=== PATIENT | female | born 1955 | race Caucasian/White ===

== ENCOUNTER 2016-10-08 15:14 | Emergency (ER) | payer BC ==
[~2016-10-08] VITALS: Ht 172.7 cm; Wt 147.5 kg
[~2016-10-08 15:14] MED LIST: ASPI325T45 PO; METO25TA56 PO; MULT-513 PO
[2016-10-08 15:17] VITALS: TEMP 36.9; Ht 172.7 cm; Wt 147.5 kg
[2016-10-08] MEDS ORDERED: SODIUM CHLORIDE 0.9% 1000ML 1,000 ML IV STA (15:34)
[2016-10-08] MEDS ORDERED: ONDANSETRON INJ 2 MG/ML 2 ML VIAL IV STA (15:34)
[2016-10-08] MEDS ORDERED: SODIUM CHLORIDE 0.9% 1000ML 500 ML IV STA (15:34)
--- NOTE | 2016-10-08 15:44 | EMERGENCY ROOM VISIT NOTE ---
History Report prepared by Blessing: Grady Rudolph Under the Supervision of: Dr. Cl Zapien M.D. First contact with patient: 15:29 Chief Complaint: DIZZY Stated Complaint: LIGHT HEADED, DIZZY, HARD TO BREATH, UPSET STOMACH History of Present Illness The patient is a 60 year old female who presents to the Emergency Room with complaints of constant lightheadedness beginning two hours prior to arrival. She associates nausea, resolved shortness of breath, and general abdominal discomfort with today's symptoms. The patient states she was at work today, when she began to experience her lightheadedness. She called Dr. Hernandez's office (Cardiology), and a nurse referred the patient to the ED. She notes of a history of atrial fibrillation with an ablation in December 2015. The patient states she has been doing well since the procedure, but she complains of intermittent heart fluttering beginning a few days ago. She associates right calf swelling with today's symptoms, as well. The patient notes she was lying in bed the other night, when she began to feel her heart race. She states she got out of bed which helped resolve her heart racing. The patient denies a history of blood clots in her legs or lungs but notes her father had clotting issues. She notes she takes a full aspirin daily. Source of History: patient Onset: two hours SLEEVER Position: other (global) Quality: other (lightheadedness) Timing: constant Associated Symptoms: + SOB (resolved), + abdominal pain (general abdominal discomfort), + nausea Note: Associated symptoms: intermittent heart fluttering, right calf swelling. Review of Systems See HPI for pertinent positives & negatives. A total of 10 systems reviewed and were otherwise negative. Past Medical & Surgical Medical Problems: (1) Atrial fibrillation (2) Labial abscess Surgical Problems: (1) Hx of cholecystectomy Family History Diabetes mellitus Social History Smoking Status: Never Smoker Alcohol Use: none Marital Status: Housing Status: lives with significant other Occupation Status: employed Current/Historical Medications Scheduled Aspirin (Aspirin), 325 MG PO DAILY Metoprolol Tartrate (Lopressor) (Lopressor), 25 MG PO DAILY Multivitamins/Minerals (Mvi With Minerals), 1 TAB PO QAM Allergies Coded Allergies: No Known Allergies (Unverified , 07/01/16) Physical Exam Vital Signs Date Time Temp Pulse Resp B/P Pulse Ox O2 Delivery O2 Flow Rate FiO2 1/25/17 18:50 63 15 131/74 100 10/08/16 17:48 65 10/08/16 17:21 62 16 125/80 97 Room Air 10/08/16 15:47 97 Room Air 10/08/16 15:17 36.9 67 18 152/99 97 Room Air Physical Exam GENERAL: Patient is in no acute distress. HEENT: No acute trauma, normocephalic atraumatic, mucous membranes moist, no nasal congestion, no scleral icterus. NECK: No stridor, no adenopathy, no meningismus, trachea is midline. LUNGS: Clear to auscultation bilaterally, no wheeze, no rhonchi, breath sounds equal. HEART: Without murmurs gallops or rubs, regular rate and rhythm. ABDOMEN: Soft, nontender, bowel sounds positive, no hernias, no peritonitis. EXTREMITIES: Mild bilateral pedal edema, no cellulitis. No cyanosis, full range of motion of all the joints without pain or difficulty, no signs for acute trauma. NEUROLOGIC: Oriented x 3, no acute motor or sensory deficits, no focal weakness. SKIN: No rash, no jaundice, no diaphoresis. Medical Decision & Procedures ER Provider Diagnostic Interpretation: US results as stated below per my review and radiologist interpretation: CT results as stated below per my review and radiologist interpretation: BILATERAL LOWER EXTREMITY VENOUS DOPPLER CLINICAL HISTORY: Lower extremity swelling. COMPARISON STUDY: No previous studies for comparison. TECHNIQUE: Sonography of the deep venous system of the bilateral lower extremities was performed. Compression and augmentation were evaluated. FINDINGS: The bilateral common femoral, superficial femoral and popliteal veins were compressible. Augmentation was normal. Flow was shown within the deep calf vessels although the calf vessels were difficult to assess due to suboptimal penetration. Note was made of superficial thrombus within a superficial vein of the medial right thigh. IMPRESSION: 1. Thrombus within a superficial vein of the medial right thigh consistent with superficial thrombophlebitis. 2. No deep venous thrombus identified within either lower extremity. Electronically signed by: Madhav Leiva M.D. 10/08/2016 4:[address] ANGIOGRAM OF THE CHEST CLINICAL HISTORY: Atypical chest pain. COMPARISON STUDY: Chest radiograph dated 01/11/2015. TECHNIQUE: Following the IV administration of 92 cc of Optiray 320, CT angiogram of the chest was performed from the upper abdomen to the thoracic inlet utilizing the pulmonary embolus protocol. Images are reviewed in the axial, sagittal, and coronal planes. 3-D MIPS images are created and assessed. IV contrast was administered without complication. The examination is degraded by large body habitus, and by streak artifact from the body wall abutting the CT gantry. There is also motion artifact and streak artifact from the patient's necklace. CT DOSE: 517.24 mGycm FINDINGS: Thyroid: Imaged portions of the thyroid gland are normal in size and attenuation. Thoracic aorta: There is mild atherosclerotic calcification of the thoracic aorta, which is normal in caliber and demonstrates standard 3-vessel arch anatomy. No dissection is seen. Pulmonary vasculature: The pulmonary trunk is normal in caliber. There are no filling defects identified in main, lobar, or segmental pulmonary branches to suggest pulmonary embolus. Heart: The heart is mildly enlarged and without pericardial effusion. Lungs and pleural spaces: Evaluation of the lung parenchyma is degraded by respiratory motion artifact. No airspace consolidation or pleural effusion is seen. Dependent atelectasis is observed. The trachea and central airways Are clear. Mediastinum: There is no mediastinal lymphadenopathy. Aydee: Clear. Axillae: There is no axillary lymphadenopathy. Upper abdomen: The liver is enlarged and steatotic. A small hiatal hernia is noted. Partially visualized upper abdominal viscera is otherwise within normal limits. Skeletal structures: Degenerative change is noted throughout the thoracic spine. No lytic or blastic bony lesions are seen. IMPRESSION: 1. There is no evidence of pulmonary embolus in the main, lobar, or segmental pulmonary arteries. 2. The lungs are clear. 3. Hepatic steatosis. 4. Mild cardiac enlargement. Electronically signed by: Cl Luis M.D. 10/08/2016 6:02 PM Laboratory Results 10/08/16 15:48 Red Blood Count 4.77, Mean Corpuscular Volume 83.9, Mean Corpuscular Hemoglobin 28.9, Mean Corpuscular Hemoglobin Concent 34.5 10/08/16 15:48 Test 10/08/16 15:48 10/08/16 16:00 White Blood Count 7.25 K/uL (4.8-10.8) Red Blood Count 4.77 M/uL (4.2-5.4) Hemoglobin 13.8 g/dL (12.0-16.0) Hematocrit 40.0 % (37-47) Mean Corpuscular Volume 83.9 fL (80-100) Mean Corpuscular Hemoglobin 28.9 pg (25-34) Mean Corpuscular Hemoglobin Concent 34.5 g/dl (32-36) Platelet Count 182 K/uL (130-400) Neutrophils % (Manual) 56.5 % Lymphocytes % (Manual) 15.7 % Variant Lymphocytes % (manual) 14.8 % Monocytes % (Manual) 8.3 % Eosinophils % (Manual) 2.8 % Metamyelocytes % 1.9 % Neutrophils # (Manual) 4.10 K/uL (1.4-6.5) Total Absolute Neutrophils 4.10 K/uL (1.4-6.5) Lymphocytes # (Manual) 1.14 K/uL (1.2-3.4) Absolute Variant Lymphocytes 1.07 K/uL Total Absolute Lymphocytes 2.21 K/uL (1.2-3.4) Monocytes # (Manual) 0.60 K/uL (0.11-0.59) Eosinophils # (Manual) 0.20 K/uL (0-0.5) Metamyelocytes # 0.14 K/uL (0-0) Toxic Vacuolation 1+ Platelet Estimate NORMAL Prothrombin Time 10.1 SECONDS (9.0-12.0) Prothromb Time International Ratio 0.9 (0.9-1.1) Activated Partial Thromboplast Time 21.4 SECONDS (21.0-31.0) Partial Thromboplastin Ratio 0.8 Anion Gap 9.0 mmol/L (3-11) Est Creatinine Clear Calc Drug Dose 113.5 ml/min Estimated GFR () 90.1 Estimated GFR (Non- 77.7 BUN/Creatinine Ratio 17.0 (10-20) Calcium Level 9.2 mg/dl (8.5-10.1) Total Bilirubin 0.3 mg/dl (0.2-1) Aspartate Amino Transf (AST/SGOT) 34 U/L (15-37) Alanine Aminotransferase (ALT/SGPT) 55 U/L (12-78) Alkaline Phosphatase 97 U/L (45-117) Troponin I < 0.015 ng/ml (0-0.045) Total Protein 7.3 gm/dl (6.4-8.2) Albumin 3.8 gm/dl (3.4-5.0) Globulin 3.5 gm/dl (2.5-4.0) Albumin/Globulin Ratio 1.1 (0.9-2) Thyroid Stimulating Hormone (TSH) 2.080 uIu/ml (0.300-4.500) Urine Color YELLOW Urine Appearance CLEAR (CLEAR) Urine pH 7.0 (4.5-7.5) Urine Specific [place] 1.001 (1.000-1.030) Urine Protein NEG (NEG) Urine Glucose (UA) NEG (NEG) Urine Ketones NEG (NEG) Urine Occult Blood NEG (NEG) Urine Nitrite NEG (NEG) Urine Bilirubin NEG (NEG) Urine Urobilinogen NEG (NEG) Urine Leukocyte Esterase MODERATE (NEG) Urine WBC (Auto) 5-10 /hpf (0-5) Urine RBC (Auto) 0-4 /hpf (0-4) Urine Hyaline Casts (Auto) 0 /lpf (0-5) Urine Epithelial Cells (Auto) >30 /lpf (0-5) Urine Bacteria (Auto) NEG (NEG) Laboratory results reviewed by me. Medications Administered Medications (Trade) Dose Ordered Sig/Ubaldo Route Start Time Stop Time Status Last Admin Dose Admin Sodium Chloride 500 ml @ 999 mls/hr Q31M STAT IV 10/08/16 15:34 10/08/16 16:04 DC 10/08/16 15:58 999 MLS/HR Sodium Chloride (Nss 1000ml) 1,000 ml @ 200 mls/hr Q5H STAT IV 10/08/16 15:34 10/08/16 19:26 DC 10/08/16 17:19 200 MLS/HR ECG Indication: other (lightheadedness) Rate (beats per minute): 68 Rhythm: normal sinus Findings: no acute ischemic change, no ectopy, other (Poor R wave progression) ED Course 1530: The patient was evaluated in room B2. A complete history and physical exam was performed. 1534: Ordered Sodium Chloride 1,000 ml @ 200 mls/hr IV, Zofran Inj 4 mg IV, Sodium Chloride 500 ml @ 999 mls/hr IV. 0: Reevaluated the patient. Discussed results and discharge instructions: She verbalized understanding and agreement. The patient is ready for discharge. Medical Decision The differential diagnoses include but are not limited to: viral illness, dehydration, electrolyte imbalance, anemia, UTI, DVT or PE, atrial fibrillation , atrial flutter, SVT. There is no leukocytosis or concerning anemia. No significant electrolyte abnormality, kidney failure or hepatitis. The patient appears to be in a euthyroid state. There is no coagulopathy. EKG shows a normal sinus rhythm, no acute ischemia. Cardiac enzyme testing times one is not consistent with acute cardiac injury. Urinalysis does not show evidence for infection. Bilateral lower extremity ultrasound shows a right thigh superficial thrombophlebitis, no acute DVT. Chest CT shows no evidence for PE or for aortic dissection. The patient presents with some heart fluttering and kind of an unwell feeling in general. Her workup is benign. I think she can be discharged with outpatient follow-up, she will talk with her local truck driver about a Holter monitor , she will return here for worsening symptoms, rest was encouraged. Impression Primary Impression: Palpitations Additional Impression: Weakness Scribe Attestation The scribe's documentation has been prepared under my direction and personally reviewed by me in its entirety. I confirm that the note above accurately reflects all work, treatment, procedures, and medical decision making performed by me. Departure Information Dispostion Home / Self-Care Referrals Alejandra Gomez DO (PCP) Forms HOME CARE DOCUMENTATION FORM, IMPORTANT VISIT INFORMATION, Work Instructions Patient Instructions My [facility] [employer] Additional Instructions rest stay well hydrated heat to right thigh--warm compresses see xiang valladares for a recheck set up an appt with cardiology lung and heart testing today was all ok return for worsening symptoms Problem Qualifiers
[2016-10-08 15:47] VITALS: O2SAT 97
[2016-10-08 16:26] LABS: INR 0.9 (0.9-1.1); PARTIAL THROMBOPLASTIN RATIO 0.8; PROTHROMBIN TIME (PATIENT) 10.1 SECONDS (9.0-12.0)
[2016-10-08 16:37] LABS: URINE APPEARANCE CLEAR (CLEAR); URINE BILIRUBIN NEG (NEG); URINE COLOR YELLOW; URINE EPITHELIAL CELL AUTO >30 /lpf (0-5); URINE NITRITE NEG (NEG); URINE SPECIFIC GRAVITY 1.001 (1.000-1.030); UROBILINOGEN NEG (NEG); ZZUR CULT IF INDIC CLEAN CATCH NO
[2016-10-08 16:38] LABS: ALT/SGPT 55 U/L (12-78); AST/SGOT 34 U/L (15-37); BLOOD UREA NITROGEN 14 mg/dl (7-18); CALCIUM 9.2 mg/dl (8.5-10.1); CARBON DIOXIDE 26 mmol/L (21-32); CHLORIDE 105 mmol/L (98-107); CREATININE 0.83 mg/dl (0.60-1.20); GLUCOSE 94 mg/dl (70-99); POTASSIUM 3.8 mmol/L (3.5-5.1); SODIUM 140 mmol/L (136-145)
[2016-10-08 16:43] LABS: MANUAL MICROSCOPIC REQUIRED? NO; REVIEW REQ? NO
[2016-10-08 16:49] LABS: ALB/GLOB RATIO 1.1 (0.9-2); ALKALINE PHOSPHATASE 97 U/L (45-117)
--- NOTE | 2016-10-08 17:00 | DIAGNOSTIC IMAGING REPORT ---
BILATERAL LOWER EXTREMITY VENOUS DOPPLER CLINICAL HISTORY: Lower extremity swelling. COMPARISON STUDY: No previous studies for comparison. TECHNIQUE: Sonography of the deep venous system of the bilateral lower extremities was performed. Compression and augmentation were evaluated. FINDINGS: The bilateral common femoral, superficial femoral and popliteal veins were compressible. Augmentation was normal. Flow was shown within the deep calf vessels although the calf vessels were difficult to assess due to suboptimal penetration. Note was made of superficial thrombus within a superficial vein of the medial right thigh. IMPRESSION: 1. Thrombus within a superficial vein of the medial right thigh consistent with superficial thrombophlebitis. 2. No deep venous thrombus identified within either lower extremity. Electronically signed by: Madhav Leiva M.D. 10/08/2016 4:58 PM Dictated Date/Time: 10/08/2016 4:56 PM
[2016-10-08] MEDS ORDERED: OPTIRAY 320 IV PRN (17:30)
[2016-10-08 17:40] LABS: MEAN CELL VOLUME 83.9 fL (80-100); MEAN CORPUSCULAR HEMOGLOBIN 28.9 pg (25-34); MEAN CORPUSCULAR HGB CONC 34.5 g/dl (32-36); PLATELET COUNT 182 K/uL (130-400); RED BLOOD COUNT 4.77 M/uL (4.2-5.4); WHITE BLOOD COUNT 7.25 K/uL (4.8-10.8)
[2016-10-08 17:41] LABS: COMPLETE YES; EOSINOPHIL % 2.8 %; LYMPH ABS # 1.14 K/uL (1.2-3.4); LYMPHOCYTE % 15.7 %; META ABS # 0.14 K/uL (0-0); METAMYELOCYTE % 1.9 %; NEUTROPHILS % 56.5 %; PLT ESTIMATE NORMAL; VACUOLIZATION 1+; VARIANT LYM ABS # 1.07 K/uL; VARIANT LYMPHOCYTE % 14.8 %
--- NOTE | 2016-10-08 18:04 | DIAGNOSTIC IMAGING REPORT ---
CT ANGIOGRAM OF THE CHEST CLINICAL HISTORY: Atypical chest pain. COMPARISON STUDY: Chest radiograph dated 01/11/2015. TECHNIQUE: Following the IV administration of 92 cc of Optiray 320, CT angiogram of the chest was performed from the upper abdomen to the thoracic inlet utilizing the pulmonary embolus protocol. Images are reviewed in the axial, sagittal, and coronal planes. 3-D MIPS images are created and assessed. IV contrast was administered without complication. The examination is degraded by large body habitus, and by streak artifact from the body wall abutting the CT gantry. There is also motion artifact and streak artifact from the patient's necklace. CT DOSE: 517.24 mGycm FINDINGS: Thyroid: Imaged portions of the thyroid gland are normal in size and attenuation. Thoracic aorta: There is mild atherosclerotic calcification of the thoracic aorta, which is normal in caliber and demonstrates standard 3-vessel arch anatomy. No dissection is seen. Pulmonary vasculature: The pulmonary trunk is normal in caliber. There are no filling defects identified in main, lobar, or segmental pulmonary branches to suggest pulmonary embolus. Heart: The heart is mildly enlarged and without pericardial effusion. Lungs and pleural spaces: Evaluation of the lung parenchyma is degraded by respiratory motion artifact. No airspace consolidation or pleural effusion is seen. Dependent atelectasis is observed. The trachea and central airways Are clear. Mediastinum: There is no mediastinal lymphadenopathy. Aydee: Clear. Axillae: There is no axillary lymphadenopathy. Upper abdomen: The liver is enlarged and steatotic. A small hiatal hernia is noted. Partially visualized upper abdominal viscera is otherwise within normal limits. Skeletal structures: Degenerative change is noted throughout the thoracic spine. No lytic or blastic bony lesions are seen. IMPRESSION: 1. There is no evidence of pulmonary embolus in the main, lobar, or segmental pulmonary arteries. 2. The lungs are clear. 3. Hepatic steatosis. 4. Mild cardiac enlargement. Electronically signed by: Cl Luis M.D. 10/08/2016 6:02 PM Dictated Date/Time: 10/08/2016 5:58 PM
[2016-10-08 18:50] VITALS: BP 131/74; PULSE 63; O2SAT 100
== END 2016-10-08 18:50 | disposition home or self-care (01) ==
LOC: C.EDB 15:15
DX: R00.2 Palpitations (principal); R53.1 Weakness; I48.91 Unspecified atrial fibrillation; Z79.82 Long term (current) use of aspirin; Z79.899 Other long term (current) drug therapy

== ENCOUNTER 2017-02-20 05:07 | Day surgery (SDC) | payer BC ==
[2017-01-26 15:08] VITALS: BMI 48.0
[2017-01-26 15:09] LABS: BASO % 0.7 %; BASO ABS # 0.04 K/uL (0-0.2); COMPLETE YES; EOS % 4.5 %; HEMATOCRIT 41.9 % (37-47); IG% 0.3 %; LYMPH % 28.7 %; LYMPH ABS # 1.73 K/uL (1.2-3.4); MEAN CELL VOLUME 85.2 fL (80-100); MEAN CORPUSCULAR HEMOGLOBIN 27.8 pg (25-34); MEAN CORPUSCULAR HGB CONC 32.7 g/dl (32-36); MEAN PLATELET VOLUME 9.7 fL (7.4-10.4); NEUT % 59.8 %; PLATELET COUNT 211 K/uL (130-400); RED BLOOD COUNT 4.92 M/uL (4.2-5.4); WHITE BLOOD COUNT 6.02 K/uL (4.8-10.8)
[2017-01-26 15:34] LABS: INR 0.9 (0.9-1.1); PROTHROMBIN TIME (PATIENT) 10.1 SECONDS (9.0-12.0)
--- NOTE | 2017-01-26 15:52 | PAT Medication Instructions ---
Service Date January 26, 2017. Current Home Medication List Aspirin (Aspirin), 325 MG PO QAM Metoprolol Tartrate (Lopressor) (Lopressor), 25 MG PO HS Multivitamins/Minerals (Mvi With Minerals), 1 TAB PO QAM Medication Instructions For Your Scheduled Surgery - Check with surgeon/polysomnography technician for instructions: Aspirin (Aspirin), 325 MG PO QAM - Hold the following medications the morning of surgery: Multivitamins/Minerals (Mvi With Minerals), 1 TAB PO QAM - Take the following medications as scheduled the night before surgery: Metoprolol Tartrate (Lopressor) (Lopressor), 25 MG PO HS If you have any questions please call us at [phone] (An Jama PA-C) or [phone] or [phone]
[~2017-02-20] VITALS: Ht 172.7 cm; Wt 143.4 kg
[2017-02-20 05:33] VITALS: BP 146/95; PULSE 56; TEMP 36.9; O2SAT 97; Ht 172.7 cm; Wt 143.4 kg
[2017-02-20] MEDS ORDERED: CEFAZOLIN 3000 MG/65 ML D5W IV SCH (06:00)
[2017-02-20] MEDS ORDERED: LACTATED RINGER'S 1000ML 1,000 ML IV SCH ×2 (06:00)
[2017-02-20] MEDS ORDERED: ALBUTEROL HFA 8 GM INHALER INH SCH (06:00)
[2017-02-20] MEDS ORDERED: FERRIC SUBSULFATE 8 GM VIAL ONE (06:35)
[2017-02-20] MEDS ORDERED: PROPOFOL IV EMULSION 10 MG/ML 20 ML VIAL IV ONE (06:41)
[2017-02-20] MEDS ORDERED: ROCURONIUM BROMIDE 10 MG/ML 5 ML VIAL ONE (06:41)
[2017-02-20] MEDS ORDERED: ONDANSETRON INJ 2 MG/ML 2 ML VIAL ONE (06:41)
[2017-02-20] MEDS ORDERED: NEOSTIGMINE METHYLSULFATE 5 MG/5 ML SYR ONE (06:41)
[2017-02-20] MEDS ORDERED: DEXAMETHASONE SOD INJ 4 MG/ML VIAL ONE (06:41)
[2017-02-20] MEDS ORDERED: GLYCOPYRROLATE INJ 0.2 MG/ML VIAL ONE ×3 (06:41→08:06)
[2017-02-20] MEDS ORDERED: FENTANYL CITRATE INJ 50 MCG/1 ML 2 ML VIAL ONE ×2 (06:41→08:03)
[2017-02-20] MEDS ORDERED: LIDOCAINE HCL 2% 2 ML VIAL (20MG/ML) ONE (06:41)
[2017-02-20] MEDS ORDERED: MIDAZOLAM HCL 1 MG/ML 2ML VIAL ONE (06:41)
--- NOTE | 2017-02-20 06:57 | History & Physical Bridge Note ---
H&P Re-Evaluation Bridge Note: I have examined the patient, reviewed the History & Physical and in the interval since the performance of the History & Physical I have noted the following changes of clinical significance: No changes noted
[2017-02-20] MEDS ORDERED: NURSING VERBAL MED ORDER ONE (07:00)
[2017-02-20] MEDS ORDERED: ATROPINE SULFATE 0.1 MG/ML 5ML SYR IV PRN (07:45)
[2017-02-20] MEDS ORDERED: KETOROLAC TROMETHAMINE 30 MG/ML VIAL IV. PRN ×2 (07:45→08:15)
[2017-02-20] MEDS ORDERED: LABETALOL HCL IV 5 MG/ML 20ML IV PRN (07:45)
[2017-02-20] MEDS ORDERED: ONDANSETRON INJ 2 MG/ML 2 ML VIAL IV PRN ×2 (07:45→08:15)
[2017-02-20] MEDS ORDERED: FENTANYL CITRATE INJ 50 MCG/1 ML 2 ML VIAL IV PRN (07:45)
[2017-02-20] MEDS ORDERED: KETOROLAC TROMETHAMINE 30 MG/ML VIAL ONE (08:03)
[2017-02-20] MEDS ORDERED: SODIUM CHLORIDE 0.9% 1000ML 1,000 ML IV SCH (08:10)
--- NOTE | 2017-02-20 08:10 | [facility] Post Operative Brief Note ---
Immediate Operative Summary Operative Date Feb 20, 2017. Pre-Operative Diagnosis Post menopausal bleeding; atypical glandular cells on pap smear Post-Operative Diagnosis Post menopausal bleeding; atypical glandular cells on pap smear Procedure(s) Performed Exam under anesthesia; Hysteroscopy, Dilation and Currettage; Polypectomy with Myosure Surgeon Dr. Key Bustos Customer Service Sales Associate Surgeon(s) none Estimated Blood Loss 5mL Findings 5x5mm endometrial polyp and atrophic endometrium Specimens A: Endometrial Polyp B: Endometrail Curetings Drains 200 ml urine Anesthesia GETA Complication(s) None Disposition Recovery Room / PACU
--- NOTE | 2017-02-20 08:14 | Discharge Instructions ---
Discharge Instructions Date of Service Feb 20, 2017. Admission Reason for Admission: Atypical Glandular Cells On Pap Smear, Pmb Discharge Discharge Diagnosis / Problem: Hysteroscopy, polypectomy and D7C Discharge Goals Goal(s): Routine recovery after surgery Activity Recommendations Activity Limitations: as noted below Lifting Limitations: gradually increase as tolerated Exercise/Sports Limitations: until after follow-up appointment May Resume Sexual Activity: after follow-up appointment Shower/Bathe: no limitations ACTIVITY RECOMMENDATIONS: * Avoid tampons, douching, hot tubs, pools, and intercourse until bleeding has stopped. * May shower as usual. * No strenuous activity for 24-48 hours. After 24-48 hours, you can do anything you feel like doing (driving and sports are okay). RETURN TO SCHOOL/WORK: * You may return to school or work after 48 hours unless specified by your physician. DIET: * Resume previous diet. MEDICATIONS: Resume previous medications unless instructed otherwise by your surgeon. Ibuprofen 200mg 34 tablets every 6-8 hours as needed --OR-- Aleve 2 tablets every 8-12 hours as needed for post-operative discomfort Medications are over the counter. Tylenol may be used if above medications are contraindicated or not preferred. Medication should be taken with food or milk. do not take on an empty stomach. SPECIAL CARE INSTRUCTIONS: * Check temperature twice daily for one week. Report any elevation over 101 degrees. * Call office if you experience increased pelvic pain or discomfort not relieved by pain medicine, if you have foul smelling vaginal discharge, if you have bleeding that is heavier than a normal menstrual flow. If you are changing a maxi pad every 1- 2 hours, this is too heavy. vaginal spotting is normal for 1-2 weeks. FOLLOW UP VISIT: Call your doctor's office for a post-operative visit. . Current Hospital Diet Patient's current hospital diet: Discharge Diet Recommended Diet: Regular Diet Procedures Procedures Performed: Exam under anesthesia; Hysteroscopy, Dilation and Currettage; Polypectomy with Myosure Pending Studies Studies pending at discharge: no Medical Emergencies . Who to Call and When: Medical Emergencies: If at any time you feel your situation is an emergency, please call 911 immediately. . Non-Emergent Contact Non-Emergency issues call your: Surgeon Call Non-Emergent contact if: temperature is above 100.5, your pain is not controlled, your pain is worsening, you have any medication questions . . "Provider Documentation" section prepared by Sheron Bustos. . VTE Core Measure Inpt VTE Proph given/why not?: Other Anticoagulation (On Aspirin)
[2017-02-20] MEDS ORDERED: PROMETHAZINE HCL INJ 25 MG in SODIUM CHLORIDE 0.9% 50ML 50 ML IV PRN (08:15)
[2017-02-20] MEDS ORDERED: MoRPHine SULFATE 2 MG/ML CARP IV PRN (08:15)
[2017-02-20] MEDS ORDERED: MoRPHine SULFATE 4 MG/ML 1 ML CARP\\VIAL IV PRN (08:15)
[2017-02-20] MEDS ORDERED: OXYCODONE/ACETAMINOPHEN 5-325 TAB PO PRN ×2 (08:15)
[2017-02-20] MEDS ORDERED: IBUPROFEN 600 MG TAB PO PRN (08:15)
[2017-02-20 08:35] VITALS: BP 115/65; PULSE 48; TEMP 36.2; O2SAT 95
--- NOTE | 2017-02-20 08:56 | OPERATIVE REPORT ---
DATE OF OPERATION: 02/20/2017 PREOPERATIVE DIAGNOSES: The patient is a 61-year-old G0 postmenopausal female with postmenopausal bleeding and atypical glandular cells on Pap smear, insufficient endometrial biopsy in the office and negative colposcopy. POSTOPERATIVE DIAGNOSES: Same and endometrial polyp. PROCEDURES: Examination under anesthesia, hysteroscopy, polypectomy with MyoSure and D&C. SURGEON: Dr. Bustos. PIT OPERATOR: None, OR nurses. ESTIMATED BLOOD LOSS: 5ml. FINDINGS: Examination under anesthesia revealed atrophic vagina, small nulliparous cervix, anteverted, enlarged uterus with fibroids, nonpalpable adnexa. Hysteroscopic findings atrophic endometrium, normal tubal ostia. There was a small 5 x 5 mm endometrial polyp in the lower anterior uterine wall. SPECIMENS: Endometrial polyp and curettings. DRAINS: Straight catheter drained 200 mL of urine. ANESTHESIA: General endotracheal. COMPLICATIONS: None. OPERATION AND FINDINGS: PROCEDURE: The patient was taken to the operating room where general anesthesia was given without difficulty. She was placed in dorsal lithotomy position and prepared and draped in usual sterile fashion and a straight catheter was used to empty the bladder and examination under anesthesia was done with the above findings. A weighed speculum was placed in the vagina. Bladder was retracted with Herr retractor. Cervix was visualized, grasped with single tooth tenaculum. It was dilated with Hood dilators until #23 and a diagnostic hysteroscope was introduced from the cervix. The cervical canal was visualized to be normal. There was a small 5 x 5 mm polyp on the lower anterior uterine wall. The rest of the endometrium appeared to be atrophic and without any lesions and tubal ostia bilaterally were normal. Then the diagnotic hysteroscope was removed and the MyoSure hysteroscope was introduced from cervix. The tip of the Myosrue device was introduced from its hysteroscope and polyp was cut and suctioned with its tip under direct visualization. It was complete removed. No more polyp or lesion was noted. Then the hysteroscopy was ended. The fluid was stopped and the instruments were removed and the uterine cavity was curetted with small sharp curette. Small amount of bloody tissue was obtained and sent for pathology. Tenaculum was removed from the cervix. Cervix was hemostatic. Instruments were removed from the vagina. The procedure was ended. The patient tolerated the procedure well. Sponge, lap and instrument counts were correct x2. She was given 3 grams of cefazolin before surgery. She was taken to recovery room in stable condition. I attest to the content of the Intraoperative Record and any orders documented therein. Any exceptions are noted below. LAZD
[2017-02-20 09:10] VITALS: BP 134/63; PULSE 50; TEMP 36; O2SAT 96
--- NOTE | 2017-02-20 09:12 | Anesthesiology Progress Note ---
Anesthesia Post Op Note Date & Time Feb 20, 2017 at 09:12 Vital Signs Pain Intensity: 2 Vital Signs Past 12 Hours Date Time Temp Pulse Resp B/P (MAP) Pulse Ox O2 Delivery O2 Flow Rate FiO2 02/20/17 09:00 47 18 115/52 (73) 98 Room Air 02/20/17 08:45 48 16 127/72 (90) 98 Room Air 02/20/17 08:35 36.2 48 16 115/65 95 Room Air 02/20/17 08:35 48 16 122/70 96 Room Air 02/20/17 08:25 46 16 132/73 95 Room Air 02/20/17 08:15 47 16 132/76 100 Mask 3 02/20/17 08:05 50 16 169/93 100 Mask 10 02/20/17 07:55 36.3 45 16 147/76 100 Mask 10 02/20/17 05:33 36.9 56 20 146/95 (112) 97 Room Air Notes Mental Status: alert / awake / arousable, participated in evaluation Pt Amnestic to Procedure: Yes Nausea / Vomiting: adequately controlled Pain: adequately controlled Airway Patency, RR, SpO2: stable & adequate BP & HR: stable & adequate Hydration State: stable & adequate Anesthetic Complications: no major complications apparent
[2017-02-20 09:30] VITALS: BP 160/70; PULSE 43; TEMP 36.2; O2SAT 96
[2017-02-21] MEDS ORDERED: CEFAZOLIN IV 3,000 MG/65 ML D5W IV ONE (06:00)
== END 2017-02-20 09:44 | disposition home or self-care (01) ==
LOC: C.ACU 05:07
PROVIDERS: ATTEND Obstetrics & Gynecology
DX: N95.0 Postmenopausal bleeding (principal); R87.619 Unspecified abnormal cytological findings in specimens from cervix uteri; N84.0 Polyp of corpus uteri; I48.91 Unspecified atrial fibrillation; G47.30 Sleep apnea, unspecified; F41.9 Anxiety disorder, unspecified; Z79.82 Long term (current) use of aspirin; M54.9 Dorsalgia, unspecified